=== PATIENT | female | born 1980 | race Caucasian/White ===

== ENCOUNTER 2024-06-13 19:07 | Emergency (ER) | payer BC, SELFPAY ==
[2024-06-13 19:10] VITALS: BP 162/120
--- NOTE | 2024-06-13 19:34 | ED.GENMED ---
History of Present Illness
<Rex Zhu MD - Last Filed: 06/15/24 12:42>
General
Chief Complaint: Crisis Evaluation
Source: patient
Exam Limitations: none
Time Seen by Provider: 06/13/24 19:24
Nursing documentation reviewed up to this point in time: agreed with
History of Present Illness
History of Present Illness:
Patient with history of anxiety and depression, currently taking Wellbutrin and Pristiq, presents to ED secondary to increased level of anxiety and depression recently, to the point where she 'does not wish to live anymore'. Denies suicidal plans.
Denies previous history of suicidal attempt. Denies recent illness. Patient reports decreased appetite and difficulty sleeping at night. Patient has lost approximate 3 pounds of weight over the past 1 week.
Review of Systems
<Rex Zhu MD - Last Filed: 06/15/24 12:42>
Review of Systems
Allergies reviewed?: Yes
All Other Systems: ROS reviewed and negative except as documented in HPI and ROS
Constitutional: Reports no symptoms
EENT: Reports no symptoms
Respiratory: Reports no symptoms
Cardiac: Reports no symptoms
ABD/GI: Reports no symptoms
Musculoskeletal: Reports no symptoms
Skin: Reports no symptoms
Neurological: Reports no symptoms
Psychiatric: Reports depression, anxiety and suicidal
Phy Exam
<Rex Zhu MD - Last Filed: 06/15/24 12:42>
Physical Exam
Physical Exam:
Physical Exam
General: no apparent distress, not acutely ill. afebrile
Head: nc/at. eomi
Neck: supple. normal range of motion.
Abdomen: normal bowel sounds. not tender.
Neuro: alert and oriented. no focal neurological deficits
Skin: no rash
Psychiatric: well kept. interactive and cooperative, but tearful
Extremities: no edema. no calf tenderness.
Course
<Rex Zhu MD - Last Filed: 06/15/24 12:42>
Orders/Labs/Results
Orders:
Orders
06/13/24 19:10
1:1 Observation - Suicide/ Violent Behavior As Directed
06/13/24 19:11
Crisis Consult Urgent
Reason for Consult: si
06/13/24 19:33
Test Result ONCE
06/13/24 19:55
Acetaminophen Urgent
Alcohol Urgent
Complete Blood Count/No Diff Urgent
Comprehensive Metabolic Panel Urgent
HCG, Serum Qualitative Screen Urgent
Comment: ADDON
Lead - Venous [S] Urgent
Salicylate Urgent
TSH Reflex To Free T4 Urgent
06/13/24 20:25
Alprazolam [Xanax] 0.5 mg PO NOW STA
Ibuprofen [Motrin] 400 mg PO NOW STA
06/13/24 21:11
Add On- LAB Urgent
Tests Added?: serum b-hcg, qualitative
06/13/24 23:49
Fentanyl, Urine Urgent
Urine Drug Abuse Screen Urgent
Date Specimen was Collected: 06/13/24
Time Specimen was Collected: 23:31
06/14/24 00:00
US Pelvis Only (non-obstetric) Urgent
Reason For Exam: acute heavy vag bleeding; cramping; IUD in place
Abnormal Lab Results
06/13/24 06/13/24
19:55 23:49
Calcium 10.3 H mg/dl
(8.4-10.2)
Albumin 5.4 H g/dl
(3.5-5.0)
Salicylates < 1.0 L mg/dl
(2.0-20.0)
Acetaminophen < 10 L ug/ml
(10-30)
U Benzodiazepines Scrn Positive H
(Negative)
U Marijuana (THC) Screen Positive H
(Negative)
06/13/24 19:55
06/13/24 19:55
Vital Signs
Initial and Last Documented VS:
Initial Vital Signs
Temp Pulse Resp BP Pulse Ox
98.5 F 133 18 162/120 98
06/13/24 19:10 06/13/24 19:10 06/13/24 19:10 06/13/24 19:10 06/13/24 19:10
Last Documented Vital Signs
Temp Pulse Resp BP Pulse Ox
98.5 F 88 16 104/65 98
06/13/24 19:10 06/14/24 00:41 06/14/24 00:41 06/14/24 00:41 06/14/24 00:41
<Barbie Lunsford, DO - Last Filed: 06/14/24 02:21>
Orders/Labs/Results
Orders:
Orders
06/13/24 19:10
1:1 Observation - Suicide/ Violent Behavior As Directed
06/13/24 19:11
Crisis Consult Urgent
Reason for Consult: si
06/13/24 19:33
Test Result ONCE
06/13/24 19:55
Acetaminophen Urgent
Alcohol Urgent
Complete Blood Count/No Diff Urgent
Comprehensive Metabolic Panel Urgent
HCG, Serum Qualitative Screen Urgent
Comment: ADDON
Lead - Venous [S] Urgent
Salicylate Urgent
TSH Reflex To Free T4 Urgent
06/13/24 20:25
Alprazolam [Xanax] 0.5 mg PO NOW STA
Ibuprofen [Motrin] 400 mg PO NOW STA
06/13/24 21:11
Add On- LAB Urgent
Tests Added?: serum b-hcg, qualitative
06/13/24 23:49
Fentanyl, Urine Urgent
Urine Drug Abuse Screen Urgent
Date Specimen was Collected: 06/13/24
Time Specimen was Collected: 23:31
06/14/24 00:00
US Pelvis Only (non-obstetric) Urgent
Reason For Exam: acute heavy vag bleeding; cramping; IUD in place
Abnormal Lab Results
06/13/24 06/13/24
19:55 23:49
Calcium 10.3 H mg/dl
(8.4-10.2)
Albumin 5.4 H g/dl
(3.5-5.0)
Salicylates < 1.0 L mg/dl
(2.0-20.0)
Acetaminophen < 10 L ug/ml
(10-30)
U Benzodiazepines Scrn Positive H
(Negative)
U Marijuana (THC) Screen Positive H
(Negative)
06/13/24 19:55
06/13/24 19:55
Vital Signs
Initial and Last Documented VS:
Initial Vital Signs
Temp Pulse Resp BP Pulse Ox
98.5 F 133 18 162/120 98
06/13/24 19:10 06/13/24 19:10 06/13/24 19:10 06/13/24 19:10 06/13/24 19:10
Last Documented Vital Signs
Temp Pulse Resp BP Pulse Ox
98.5 F 88 16 104/65 98
06/13/24 19:10 06/14/24 00:41 06/14/24 00:41 06/14/24 00:41 06/14/24 00:41
<Rex Zhu MD - Last Filed: 06/15/24 12:42>
MDM/Problems Addressed
MDM/Problems Addressed:
Pt medically cleared. Awaiting evaluation by [facility] survey workers supervisor.
<Barbie Lunsford DO - Last Filed: 06/14/24 02:21>
*Radiology
Radiology exam reviewed: radiology read reviewed (Pelvic ultrasound shows IUD in place. Normal endometrial stripe. 2.8 cm simple right ovarian cyst. 2.7 cm small hemorrhagic cyst on the left. Normal blood flow to both ovaries. No adnexal
masses nor pelvic free fluid.)
*Pulse Oximetry
Patient hypoxic: no
*Critical Care Note
Total Time (30-74mins, 75-104mins- exclusive of procedures): Not Applicable
<Barbie Lunsford, DO - Last Filed: 06/14/24 02:21>
Update Note
Update Note:
06/13/2024 2349 PM
Patient has been evaluated by [facility]. Recommending inpatient psychiatric care for which patient is agreeable to.
She complains of heavy vaginal bleeding that began tonight with some intermittent pelvic cramping.
She has Mirena IUD that was placed 8 months ago for control. Patient states since Mirena IUD in place she has not had a period over the past 8 months until tonight. She does admit to some intermittent pelvic cramping over the past week but
heavy bleeding began tonight.
She is concerned that the IUD has migrated or perhaps fallen out. Labs are all unremarkable. Normal CBC. hCG is negative.
A lead level is pending. Patient requested this as she was standing a chair coated with lead paint. She was wearing a respirator at the time but is concerned for possible lead poisoning.
Abdomen is soft, nondistended, minimal suprapubic tenderness with deep palpation only. No rebound or guarding. No palpable masses.
: There is small to moderate amount of dark maroon blood within vaginal vault. No active bleeding. IUD string is visible extruding from the cervical os.
I suspect breakthrough bleeding/menses but will check pelvic ultrasound assess for possible migration/early extrusion of IUD, assess for potential endometrial abnormalities, fibroid, ovarian cyst.
[facility] arranging for psychiatric hospital acceptance and transfer.
06/14/2024 0215 AM
Patient resting comfortably. Sleeps when undisturbed.
She has had no return of significant vaginal bleeding.
Ultrasound shows IUD within the uterus and appears in satisfactory position. Endometrial complex 7 mm in thickness which is within normal limits.
2.8 cm simple right ovarian cyst.
2.7 cm small hemorrhagic cyst of the left ovary. Positive flow to both ovaries. No adnexal masses, no pelvic free fluid.
I suspect vaginal bleeding is current menstrual period and I suspect irregular menses related to perimenopausal state as well as Mirena IUD.
She has been accepted to [facility].
[facility] arranging for transport.
ED Attending Note
<Rex Zhu MD - Last Filed: 06/15/24 12:42>
-
Portions of this chart may have been created with voice recognition software.� Occasional wrong word or��sound alike� substitutions may have occurred due to the inherent limitations of voice recognition software.
Discharge Plan
Departure
Patient Disposition: Psych Facility
Date of Disposition: 06/14/24
Time of Disposition: 02:12
Discharge Problem:
Major depressive disorder with current active episode, Irregular menstrual bleeding
Prescriptions:
No Action
bupropion HCl 150 MG tablet sustained-release 12 hr
150 mg PO DAILY
sertraline 100 MG tablet
100 mg PO DAILY Qty: 0 0RF
oxycodone-acetaminophen 5 MG/325 MG tablet
1 tab PO Q4HPRN PRN (Reason: moderate pain) Qty: 0 0RF
ibuprofen 600 MG tablet
600 mg PO Q6HPRN PRN (Reason: moderate pain/cramps) Qty: 0 0RF
Referrals:
Shivani Dueñas PA-C [Family Provider] -
Interventions
Interventions:
*Risk Screen - Suicide Last Done: 06/13/24 19:09
*General Assessment Last Done: 06/13/24 19:10
*Neglect/Abuse Screening Last Done: 06/13/24 19:10
ED- Fall Risk Assessment Last Done: 06/13/24 21:13
*ED COVID-19 Vaccine History Last Done: 06/13/24 19:10
*Nursing Disposition Last Done: 06/14/24 03:04
ED-Psychological Assessment Last Done: 06/13/24 21:13
Discharge Date and Time
Discharge Date/Time: 06/14/24 03:04
Print Language: [id number]
[2024-06-13 19:47] VITALS: BMI 24.1
[2024-06-13 20:04] LABS: Hematocrit 39.1 % (37.0-47.0); Hemoglobin 14.3 g/dL (12.0-16.0); Mean Corp Hgb Conc. 36.6 g/dL (33.0-37.0); Mean Corpuscular Volume 84.8 fL (81.0-99.0); Platelet Count 250 10^3/uL (130-400); Red Blood Cell Count 4.61 10^6/uL (4.20-5.40); Red Cell Dist. Width 11.7 % (11.5-14.5); White Blood Cell Count 7.4 10^3/uL (4.8-10.8)
[2024-06-13 20:22] LABS: ALT (SGPT) 28 U/L (0-35); AST (SGOT) 27 U/L (14-36); Acetaminophen < 10 ug/ml (10-30); Albumin 5.4 g/dl (3.5-5.0); Alkaline Phosphatase 68 U/L (38-126); Blood Urea Nitrogen 14 mg/dl (7-17); Calcium 10.3 mg/dl (8.4-10.2); Carbon Dioxide 24 mmol/L (22-30); Chloride 100 mmol/L (98-107); Estimated Creatinine Clearance 119 ml/min; Glucose 94 mg/dl (70-99); Potassium 3.9 mmol/L (3.5-5.1); Salicylate < 1.0 mg/dl (2.0-20.0); Sodium 138 mmol/L (135-145); Total Bilirubin 0.4 mg/dl (0.2-1.3); Total Protein 7.8 g/dl (6.3-8.2); eGFR > 60.00
[2024-06-13 20:32] LABS: Alcohol None Detected
[2024-06-13] MEDS: MOTRIN 400 MG PO (20:50)
[2024-06-13] MEDS: XANAX 0.5 MG PO (20:50)
[2024-06-13 20:51] LABS: TSH Reflex To Free T4 0.96 uIU/ml (0.47-4.68)
[2024-06-13 21:43] LABS: HCG, Serum Qualitative Screen Negative
[2024-06-14 00:41] VITALS: BP 104/65
[2024-06-14 00:52] LABS: Amphetamines Negative (Negative); Barbiturates Negative (Negative); Benzodiazepines Positive (Negative); Buprenorphine Negative (Negative); Cocaine Negative (Negative); Marijuana Positive (Negative); Methadone Negative (Negative); Methamphetamines Negative (Negative); Opiates Negative (Negative); Phencyclidine Negative (Negative)
[2024-06-14 00:53] LABS: Tricyclic Antidepressants Negative (Negative)
[2024-06-14 01:06] LABS: Fentanyl, Urine Negative (Negative)
[2024-06-16 04:30] LABS: Lead - Venous <2.0 ug/dL (<=4.9)
== END 2024-06-14 03:04 ==
LOC: EMR 19:07
PROVIDERS: Emergency Medicine; EMERGENCY PHYSICIAN Emergency Medicine; FAMILY PHYSICIAN Physician Assistant Medical
DX: F32.9 Major depressive disorder, single episode, unspecified (principal); F41.8 Other specified anxiety disorders; N92.6 Irregular menstruation, unspecified; Z97.5 Presence of (intrauterine) contraceptive device
CPT/HCPCS: 99284; 76856; 80053; 80143; 80179; 80306; 80307; 82077; 83655; 84443; 84703; 85027

== ENCOUNTER 2025-04-04 16:33 | Inpatient (IN) | payer BC, SELFPAY ==
[2025-04-04] VITALS (15 sets, daily range): BP systolic 83–121; BP diastolic 45–78
[2025-04-04 11:27] LABS: Hematocrit 37.5 % (37.0-47.0); Hemoglobin 13.2 g/dL (12.0-16.0); Mean Corp Hgb Conc. 35.2 g/dL (33.0-37.0); Mean Corpuscular Volume 86.6 fL (81.0-99.0); Nucleated Red Blood Cells % 0 %; Platelet Count 174 10^3/uL (130-400); Red Cell Dist. Width 11.8 % (11.5-14.5)
[2025-04-04 11:50] LABS: HCG, Serum Qualitative Screen Negative
[2025-04-04 11:59] LABS: ALT (SGPT) 55 U/L (0-35); AST (SGOT) 30 U/L (14-36); Albumin 5.1 g/dl (3.5-5.0); Alkaline Phosphatase 97 U/L (38-126); Blood Urea Nitrogen 6 mg/dl (7-17); Calcium 9.5 mg/dl (8.4-10.2); Carbon Dioxide 24 mmol/L (22-30); Chloride 99 mmol/L (98-107); Glucose 148 mg/dl (70-99); Lipase 38 U/L (23-300); Potassium 4.0 mmol/L (3.5-5.1); Sodium 132 mmol/L (135-145); Total Protein 7.6 g/dl (6.3-8.2); eGFR > 60.00
[2025-04-04] MEDS: NSS 1000 IV ×3 (12:08→21:10)
[2025-04-04] MEDS: TORADOL 15 MG IV (12:11)
--- NOTE | 2025-04-04 12:21 | ED.GENMED ---
History of Present Illness
<Mireya Romero PA-C - Last Filed: 04/04/25 17:24>
General
Chief Complaint: Abdominal Pain
Source: patient
Exam Limitations: none
Time Seen by Provider: 04/04/25 11:46
Nursing documentation reviewed up to this point in time: agreed with
History of Present Illness
History of Present Illness:
Patient is a 44-year-old female who presents to the emergency department for evaluation of abdominal pain for the past 2 days. Patient states that 2 days ago she began with vague abdominal discomfort which has remained constant since. She states
that earlier today pain seemed to migrate to the right lower quadrant. She denies any associated fever or vomiting. No diarrhea or constipation.
Patient does report that she has had very little appetite over the past few days.
Patient was seen by her primary care provider earlier today where she was referred to the emergency department for further evaluation.
Patient does report a history of tachycardia and has not taken her beta-zaki today. Patient reports penicillin allergy.
Review of Systems
<Mireya Romero PA-C - Last Filed: 04/04/25 17:24>
Review of Systems
Allergies reviewed?: Yes
All Other Systems: ROS reviewed and negative except as documented in HPI and ROS
Phy Exam
<Mireya Romero PA-C - Last Filed: 04/04/25 17:24>
Physical Exam
Physical Exam:
Vitals: Tachycardic, otherwise vital signs stable
General: Patient is well appearing, nontoxic appearing.
Skin: Warm and dry, no rashes or lesions
Head: Normocephalic, atraumatic
Eyes: Sclera nonicteric. EOMs intact. No nystagmus.
Throat: Protecting airway
Neck: Normal ROM, no cervical spine tenderness, no meningismus
Cardiac: Tachycardic, normal rhythm no murmurs.
Pulm: Normal respiratory effort, no wheezes, rales, rhonchi heard on exam
.
Abdomen: Abdomen soft. Moderate tenderness McBurney's point with voluntary guarding. No rebound tenderness
Extremities: No evidence of cyanosis or edema. Perfusing well
Neuro: AAOx3. Grossly intact.
Psychiatric: Normal affect.
Course
<Mireya Romero PA-C - Last Filed: 04/04/25 17:24>
Orders/Labs/Results
Orders:
Orders
04/04/25 11:11
Electrocardiogram (*1) Urgent
Reason for Study: Abdominal Pain
IV Insert/Care/Rem.- Treatment PRN
04/04/25 11:12
EKG- Treatment ONCE
Test Result ONCE
04/04/25 11:19
Complete Blood Count/With Diff Urgent
Comprehensive Metabolic Panel Urgent
HCG, Serum Qualitative Screen Urgent
Comment: Notify provider if positive test present
Lipase Urgent
04/04/25 11:55
CT Abd/pelvis W Iv Cont Urgent
Comment:
Reason For Exam: RLQ pain
0.9% Sodium Chloride 1000 ml [Nss] 1,000 ml IV BOLUS
Ketorolac [Toradol] 15 mg IV NOW STA
04/04/25 12:45
HYDROmorphone [Dilaudid] 0.5 mg IV NOW STA
04/04/25 12:51
Urinalysis Reflex To Culture Urgent
Date Specimen was Collected: 04/04/25
Time Specimen was Collected: 11:11
Urine Microscopic Reflex Cult Urgent
04/04/25 13:39
LevoFLOXacin 750 MG/150 ML [Levaquin] 750 mg in 150 ml IV NOW
MetroNIDAZOLE 500 MG/100 ML [Flagyl 500 mg] 100 ml IV NOW
04/04/25 15:01
HYDROmorphone [Dilaudid] 0.5 mg .ROUTE .STK-MED ONE
HYDROmorphone [Dilaudid] 0.5 mg IV NOW STA
04/04/25 15:34
0.9% Sodium Chloride 1000 ml [Nss] 1,000 ml IV BOLUS
04/04/25 15:39
Lactic Acid Q4H
Comment: CANCEL 2nd LACTIC ACID IF 1st LACTIC ACID IS LESS THAN 2
04/04/25 15:45
Electrocardiogram (*1) Urgent
Reason for Study: Bradycardia / Tachycardia
04/04/25 16:21
Admit/Transfer Patient As Directed
Co-Sign Provider:
Level of Care: Inpatient admission
Assign to:: Telemetry
Physician / Group: nyasia
Diagnosis: appendicitis
Reason for Telemetry: Arrhythmia
Date to Stop Telemetry: 04/07/25
Time to Stop Telemetry: 11:00
Reason for Hospitalization: appendicitis
Expected length of stay greater than two midnights?: Yes
ELOS- Estimated Length of Stay in days: 2
I certify the patient meets the requirements for IP care: Yes
PRN Pain Medication Management As Directed
May give lesser potent ordered pain med per pt: Yes
preference::
Protocol:: Medication orders for pain may be administered in a
manner that supports deferring to patient preference
when the pt is:
- Requesting an ordered lesser potent pain medication.
Least to most potent pain medications are defined
as: acetaminophen < NSAID < tramadol < opioids
(morphine, oxycodone, hydromorphone).
- Requesting a lesser dose of the same medication IF
ORDERED.
- Requesting a less intrusive route of administration
if both routes are prescribed by the provider (PO <
IV).
04/04/25 16:22
Code Status As Directed
Resuscitation Status: Full Code
04/04/25 16:25
PRN Pain Medication Management As Directed
May give lesser potent ordered pain med per pt: Yes
preference::
Protocol:: Medication orders for pain may be administered in a
manner that supports deferring to patient preference
when the pt is:
- Requesting an ordered lesser potent pain medication.
Least to most potent pain medications are defined
as: acetaminophen < NSAID < tramadol < opioids
(morphine, oxycodone, hydromorphone).
- Requesting a lesser dose of the same medication IF
ORDERED.
- Requesting a less intrusive route of administration
if both routes are prescribed by the provider (PO <
IV).
04/07/25 11:00
DC Protocol for Telemetry ONCE
Abnormal Lab Results
04/04/25 04/04/25
11:19 12:51
WBC 14.0 H 10^3/uL
(4.8-10.8)
Abs Immat Gran (auto) 0.1 H 10^3/uL
(0-0.05)
Absolute Neuts (auto) 12.3 H 10^3/uL
(1.4-6.5)
Absolute Lymphs (auto) 0.6 L 10^3/uL
(1.2-3.4)
Absolute Monos (auto) 1.1 H 10^3/uL
(0.1-0.6)
Neutrophils % 87.4 H %
(42.2-75.2)
Lymphocytes % 4.3 L %
(20.5-51.1)
Sodium 132 L mmol/L
(135-145)
BUN 6 L mg/dl
(7-17)
Glucose 148 H mg/dl
(70-99)
ALT 55 H U/L
(0-35)
Albumin 5.1 H g/dl
(3.5-5.0)
Urine Bacteria (Reflex) Few A
(Negative)
Urine Albumin (Reflex) 1+ A
(Neg - Trace)
04/04/25 11:19
04/04/25 11:19
Vital Signs
Initial and Last Documented VS:
Initial Vital Signs
Temp Pulse Resp BP Pulse Ox
98.7 F 140 22 121/78 97
04/04/25 11:09 04/04/25 11:09 04/04/25 11:09 04/04/25 11:09 04/04/25 11:09
Last Documented Vital Signs
Temp Pulse Resp BP Pulse Ox
99.7 F 134 15 100/63 99
04/04/25 15:29 04/04/25 17:00 04/04/25 17:00 04/04/25 17:00 04/04/25 15:31
<Rika Romero MD - Last Filed: 04/04/25 15:56>
Orders/Labs/Results
Orders:
Orders
04/04/25 11:11
Electrocardiogram (*1) Urgent
Reason for Study: Abdominal Pain
IV Insert/Care/Rem.- Treatment PRN
04/04/25 11:12
EKG- Treatment ONCE
Test Result ONCE
04/04/25 11:19
Complete Blood Count/With Diff Urgent
Comprehensive Metabolic Panel Urgent
HCG, Serum Qualitative Screen Urgent
Comment: Notify provider if positive test present
Lipase Urgent
04/04/25 11:55
CT Abd/pelvis W Iv Cont Urgent
Comment:
Reason For Exam: RLQ pain
0.9% Sodium Chloride 1000 ml [Nss] 1,000 ml IV BOLUS
Ketorolac [Toradol] 15 mg IV NOW STA
04/04/25 12:45
HYDROmorphone [Dilaudid] 0.5 mg IV NOW STA
04/04/25 12:51
Urinalysis Reflex To Culture Urgent
Date Specimen was Collected: 04/04/25
Time Specimen was Collected: 11:11
Urine Microscopic Reflex Cult Urgent
04/04/25 13:39
LevoFLOXacin 750 MG/150 ML [Levaquin] 750 mg in 150 ml IV NOW
MetroNIDAZOLE 500 MG/100 ML [Flagyl 500 mg] 100 ml IV NOW
04/04/25 15:01
HYDROmorphone [Dilaudid] 0.5 mg .ROUTE .STK-MED ONE
HYDROmorphone [Dilaudid] 0.5 mg IV NOW STA
04/04/25 15:34
0.9% Sodium Chloride 1000 ml [Nss] 1,000 ml IV BOLUS
04/04/25 15:39
Lactic Acid Q4H
Comment: CANCEL 2nd LACTIC ACID IF 1st LACTIC ACID IS LESS THAN 2
04/04/25 15:45
Electrocardiogram (*1) Urgent
Reason for Study: Bradycardia / Tachycardia
04/04/25 16:21
Admit/Transfer Patient As Directed
Co-Sign Provider:
Level of Care: Inpatient admission
Assign to:: Telemetry
Physician / Group: nyasia
Diagnosis: appendicitis
Reason for Telemetry: Arrhythmia
Date to Stop Telemetry: 04/07/25
Time to Stop Telemetry: 11:00
Reason for Hospitalization: appendicitis
Expected length of stay greater than two midnights?: Yes
ELOS- Estimated Length of Stay in days: 2
I certify the patient meets the requirements for IP care: Yes
PRN Pain Medication Management As Directed
May give lesser potent ordered pain med per pt: Yes
preference::
Protocol:: Medication orders for pain may be administered in a
manner that supports deferring to patient preference
when the pt is:
- Requesting an ordered lesser potent pain medication.
Least to most potent pain medications are defined
as: acetaminophen < NSAID < tramadol < opioids
(morphine, oxycodone, hydromorphone).
- Requesting a lesser dose of the same medication IF
ORDERED.
- Requesting a less intrusive route of administration
if both routes are prescribed by the provider (PO <
IV).
04/04/25 16:22
Code Status As Directed
Resuscitation Status: Full Code
04/04/25 16:25
PRN Pain Medication Management As Directed
May give lesser potent ordered pain med per pt: Yes
preference::
Protocol:: Medication orders for pain may be administered in a
manner that supports deferring to patient preference
when the pt is:
- Requesting an ordered lesser potent pain medication.
Least to most potent pain medications are defined
as: acetaminophen < NSAID < tramadol < opioids
(morphine, oxycodone, hydromorphone).
- Requesting a lesser dose of the same medication IF
ORDERED.
- Requesting a less intrusive route of administration
if both routes are prescribed by the provider (PO <
IV).
04/07/25 11:00
DC Protocol for Telemetry ONCE
Abnormal Lab Results
04/04/25 04/04/25
11:19 12:51
WBC 14.0 H 10^3/uL
(4.8-10.8)
Abs Immat Gran (auto) 0.1 H 10^3/uL
(0-0.05)
Absolute Neuts (auto) 12.3 H 10^3/uL
(1.4-6.5)
Absolute Lymphs (auto) 0.6 L 10^3/uL
(1.2-3.4)
Absolute Monos (auto) 1.1 H 10^3/uL
(0.1-0.6)
Neutrophils % 87.4 H %
(42.2-75.2)
Lymphocytes % 4.3 L %
(20.5-51.1)
Sodium 132 L mmol/L
(135-145)
BUN 6 L mg/dl
(7-17)
Glucose 148 H mg/dl
(70-99)
ALT 55 H U/L
(0-35)
Albumin 5.1 H g/dl
(3.5-5.0)
Urine Bacteria (Reflex) Few A
(Negative)
Urine Albumin (Reflex) 1+ A
(Neg - Trace)
04/04/25 11:19
04/04/25 11:19
Vital Signs
Initial and Last Documented VS:
Initial Vital Signs
Temp Pulse Resp BP Pulse Ox
98.7 F 140 22 121/78 97
04/04/25 11:09 04/04/25 11:09 04/04/25 11:09 04/04/25 11:09 04/04/25 11:09
Last Documented Vital Signs
Temp Pulse Resp BP Pulse Ox
99.7 F 134 15 100/63 99
04/04/25 15:29 04/04/25 17:00 04/04/25 17:00 04/04/25 17:00 04/04/25 15:31
<Mireya Romero PA-C - Last Filed: 04/04/25 17:24>
MDM/Problems Addressed
Differential Diagnosis Includes:
Not limited to: Acute appendicitis, intra-abdominal abscess, perforated appendicitis, diverticulitis, pyelonephritis, acute cholecystitis, etc.
MDM/Problems Addressed:
44-year-old female with history as documented presenting with 2 days of right lower abdominal pain associate with anorexia. No known fevers or vomiting at home. Patient tachycardic on arrival however normotensive. She is afebrile. On
exam�patient appears somewhat anxious however nontoxic. She is tachycardic with normal rhythm. Lungs clear bilaterally. Abdomen soft with focal tenderness in right lower quadrant McBurney's point. Basic labs were sent prior to my evaluation
significant for leukocytosis of 14. Chemistry reveals mild hyponatremia without any other clinically significant abnormalities. Urine shows no evidence of infection.
Based on patient's history and physical exam�high suspicion for acute appendicitis. Will proceed with CT scan abdomen/pelvis. Etiology of tachycardia unknown�possible anxiety vs dehydration vs sepsis. She does also report somewhat chronic history
of tachycardia as she is on a beta-zaki however did not take her dose this morning. Will continue to monitor closely
Update: CT scan shows evidence of acute appendicitis with small amount of periappendiceal fluid however no obvious abscess. Will start Levaquin/Flagyl given history of penicillin allergy. Will discuss with general surgery.
Update: Patient remains tachycardic in 130s�140s with somewhat soft BP, however MAP >65. Did reassess patient at bedside who remains well-appearing and nontoxic. She is asymptomatic and denies any palpitations, lightheadedness. While vital signs
could indicate sepsis�she appears very well. It is possible that her tachycardia is somewhat baseline and borderline hypotension secondary to narcotic pain medicine. Will check lactic acid and run second liter IV fluids wide open. Given concern
of elevated heart rate and possible sepsis�patient was admitted to hospitalist service. General surgery will consult.
Update: General surgery down to evaluate patient at bedside who brought patient to OR for appendectomy
Chronic conditions affecting care:
Tachycardia
Acute Exacerbation and/or Progression of Chronic Illness:
N/A
<Mireya Romero PA-C - Last Filed: 04/04/25 17:24>
*Radiology
Radiology exam reviewed: radiology read reviewed
*Pulse Oximetry
SaO2: 98
Oxygen Mode of Delivery: Room air
Patient hypoxic: no
*EKG
Interpreted by ED Provider?: Yes
EKG Intrepretation Date: 04/04/25
Interpretation: abnormal
Heart Rate: 122
Rate: tachycardiac
Rhythm: sinus
Interval: normal QT interval
*Sales Account Executive Interpretation
Rate: tachycardiac
Interpretation: abnormal
Heart Rate: 131
Rhythm: sinus
*Critical Care Note
Total Time (30-74mins, 75-104mins- exclusive of procedures): Not Applicable
<Mireya Romero PA-C - Last Filed: 04/04/25 17:24>
Patient Management
Discussion with other providers: Hospitalist and [employer] (Case discussed with general surgery)
ED Attending Note
<Mireya Romero PA-C - Last Filed: 04/04/25 17:24>
-
Portions of this chart may have been created with voice recognition software.� Occasional wrong word or��sound alike� substitutions may have occurred due to the inherent limitations of voice recognition software.
<Rika Romero MD - Last Filed: 04/04/25 15:56>
ED Attending Note
Patient seen and examined by attending physician: Yes
I performed the substantive portion of visit, reviewed & personally made and approve the management plan that is documented in note by myself or KAREN.: Yes
ED Attending Note:
44-year-old female with a few days of progressive abdominal pain noted to have right lower quadrant tenderness on exam here without rebound or guarding. She is overall very well-appearing, bright, lucid, requesting something to drink, conversant.
CT consistent with acute appendicitis. Antibiotics and IV fluids have been ordered and surgery contacted. No abscess noted. Patient has tachycardia noted here which in conversation with patient she states is baseline for her. She had a baseline
tachycardia up to 140s when she was on an antidepressant, and propranolol was added which she takes twice daily. However she is noncompliant with regularly taking the medication and her last dose was several days ago. She is not surprised with her
heart rate of 140s here in the emergency department. She denies dizziness, palpitations, chest pain, dyspnea. She states that she is thirsty and she thinks that she is 'dry'. Blood pressure noted to be somewhat soft although MAP greater than 65.
This may be a consequence of the pain medication that she got. IV fluids running wide open. Lactic pending. Technically she does have markers that would be consistent with sepsis however her clinical appearance and baseline tachycardia give me
pause. Plan is to monitor closely, continue IV fluids, assessments, admission.
Discharge Plan
Departure
Patient Disposition: Admit
Date of Disposition: 04/04/25
Time of Disposition: 14:56
Presentation/result/management discussed w/ accepting MD/DO: Hospitalist
Discharge Problem:
Acute appendicitis, Sepsis
Interventions
Interventions:
*Risk Screen - Suicide Last Done: 04/04/25 11:09
*General Assessment Last Done: 04/04/25 11:09
*Neglect/Abuse Screening Last Done: 04/04/25 11:09
*ED- Fall Risk Assessment Last Done: 04/04/25 12:12
*ED COVID-19 Vaccine History Last Done: 04/04/25 12:12
*Nursing Disposition Last Done: 04/04/25 17:12
PA-Hbhqxw-Qmofhcyocj Assessment Last Done: 04/04/25 12:16
Discharge Date and Time
Discharge Date/Time: 04/04/25 17:13
[2025-04-04] MEDS: DILAUDID 0.5 MG IV ×2 (12:50→15:03)
[2025-04-04 13:18] LABS: Urine Character Clear (Clear)
[2025-04-04] MEDS: FLAGYL 500 MG 100 IV ×2 (14:03→21:13)
[2025-04-04] MEDS: LEVAQUIN 150 IV (14:03)
[2025-04-04 14:12] LABS: Urine Squamous Cell >30 /LPF (Few)
[2025-04-04 14:13] LABS: Urine Red Blood Cell 0-2 /HPF (0-2)
[2025-04-04 14:14] LABS: Urine White Cell 0-2 /HPF (0-5)
--- NOTE | 2025-04-04 16:26 | HPS.HSE ---
Family Physician
-
Family Physician: Shivani Dueñas
Chief Complaint
-
abdominal pain
History of Present Illness
44-year-old female past medical history of tachycardia, gestational diabetes, depression, presenting for abdominal pain for the past 2 days. 2 days ago she started having vague abdominal discomfort that is constant. Earlier today pain migrated to
the right lower quadrant. Denies fever or vomiting. No diarrhea or constipation. No fevers or chills.
She has a history of tachycardia and her heart rate is normally slightly above 100.
Denies smoking, or drugs. Drinks alcohol occasionally.
Medical History
Past Medical History
Past Medical History: Reports Other (tachycardia, gestational diabetes, depression)
Past Surgical History: Reports None
Social History
Tobacco: Non-smoker
Alcohol: Occasional
Drug: None
Family History
Family History: Not pertinent
Allergies / Home Medications
Allergies reflects when Allergies were last updated in [employer].
Home Medications with original date entered in [employer]
Allergy/Medication List:
Allergies
Allergy/AdvReac Type Severity Reaction Status Date / Time
Penicillins Allergy Unknown Verified 04/20/16 05:44
Home Medications
buspirone 15 mg tablet 15 mg PO TID 04/04/25
clomipramine 75 mg capsule 150 mg PO HS 04/04/25
docusate sodium 100 mg capsule (Colace) 100 mg PO HS 04/04/25
estradiol 0.05 mg/24 hr semiweekly transdermal patch 1 patch transdermal SUWE 04/04/25
gabapentin 400 mg capsule 400 mg PO TID 04/04/25
lorazepam 1 mg tablet 1 mg PO DAILYPRN PRN anxiety 04/04/25
pantoprazole 20 mg tablet,delayed release (Protonix) 20 mg PO DAILYPRN PRN gerd 04/04/25
progesterone micronized 100 mg capsule 100 mg PO HS 04/04/25
propranolol 10 mg tablet 5 mg PO BID 04/04/25
sertraline 200 mg capsule 200 mg PO DAILY 04/04/25
Review of Systems
-
History Source: Patient
A 12 point ROS was completed and negative except as noted: Yes
Constitutional: Reports No Symptoms
EENT: Reports No Symptoms
Respiratory: Reports No Symptoms
Cardiac: Reports No Symptoms
Abdomen/GI: Reports See HPI
: Reports No Symptoms
Musculoskeletal: Reports No Symptoms
Skin: Reports No Symptoms
Neurological: Reports No Symptoms
Endocrine: Reports No Symptoms
Hematologic/Lymphatic: Reports No Symptoms
Psych: Reports No Symptoms
Physical Exam
Vital Signs
Vital Signs
Temp Pulse Resp BP Pulse Ox
99.7 F 135 18 93/61 99
04/04/25 15:29 04/04/25 16:15 04/04/25 16:15 04/04/25 16:00 04/04/25 15:31
Physical Exam
General: Well Developed, Well Nourished and No Apparent Distress
HEENT: NormoCephalic, Moist mucous membranes and Atraumatic
Respiratory: Clear
Cardiac: S1/S2 and Regular Rhythm; No Murmur or Rub
GI: Soft, Non Distended, Normal Bowel Sounds and Tender (RLQ ); No Organomegaly
Rectal: Deferred by Provider
Musculoskeletal: No Clubbing, No Cyanosis and No Edema
Skin: No Rash
Neuro: Nonfocal/grossly intact
Laboratory Results
-
04/04/25 11:19
04/04/25 11:19
Laboratory Results
Lactic Acid Cancelled 04/04/25 19:45
Total Bilirubin 0.7 mg/dl (0.2-1.3) 04/04/25 11:19
AST 30 U/L (14-36) 04/04/25 11:19
ALT 55 U/L (0-35) H 04/04/25 11:19
Alkaline Phosphatase 97 U/L (38-126) 04/04/25 11:19
Lipase 38 U/L (23-300) 04/04/25 11:19
Data Reviewed
-
Lab Data: Labs Reviewed by me
Old Records: Reviewed
Impression/Plan
-
IMPRESSION:
PLAN:
# Sepsis (leukocytosis, tachycardia) secondary to acute appendicitis
- CT abdomen pelvis shows large amount of periappendiceal inflammatory stranding, asymmetric large size of left ovary without identifiable ovarian cyst
-Urinalysis negative
-N.p.o.
- IV fluids
- Levaquin/Flagyl
- Zofran, ketorolac, Dilaudid as needed
- General Surgery consulted
History of tachycardia
- EKG shows sinus tachycardia heart rate 130, incomplete right bundle branch block, no prior for comparison
- Continue propranolol
- Telemetry monitoring
Anxiety/depression
- Continue buspirone, clomipramine, lorazepam, sertraline
Full code
DVT prophylaxis�heparin
N.p.o.
--- NOTE | 2025-04-04 17:24 | CON.GS ---
Consultation
-
Date/Time Consultation Performed: 04/04/2025 5 PM
Reason for Consultation: Appendicitis
Medical History
-
Chief Complaint: Right-sided abdominal pain
History of Present Illness:
Patient is a 44-year-old female who is in her usual baseline state of health until Tuesday, 48 hours ago when she began developing abdominal pain localizing to the right abdomen. She has had nausea and anorexia but no vomiting. Her last bowel
movement was yesterday. She feels abdominal bloating and distention. No similar episodes like this in the past.
Past Medical History
Past Medical History: Other (Tachycardia, gestational diabetes, depression)
Past Surgical History:
Social History
Tobacco: Non-Smoker
Alcohol: Occasional
Personal:
Living: With Family
Family History
Family History: Reviewed & Not Pertinent
Allergies / Home Medications
Allergy/AdvReac Type Severity Reaction Status Date / Time
Penicillins Allergy CHILD Verified 04/04/25 16:47
�Medication �Instructions �Recorded �Confirmed �Type
buspirone 15 mg tablet 15 mg PO TID 04/04/25 04/04/25 History
clomipramine 75 mg capsule 150 mg PO HS 04/04/25 04/04/25 History
docusate sodium 100 mg capsule 100 mg PO HS 04/04/25 04/04/25 History
(Colace)
estradiol 0.05 mg/24 hr semiweekly 1 patch transdermal SUWE 04/04/25 04/04/25 History
transdermal patch
gabapentin 400 mg capsule 400 mg PO TID 04/04/25 04/04/25 History
lorazepam 1 mg tablet 1 mg PO DAILYPRN PRN anxiety 04/04/25 04/04/25 History
pantoprazole 20 mg tablet,delayed 20 mg PO DAILYPRN PRN gerd 04/04/25 04/04/25 History
release (Protonix)
progesterone micronized 100 mg 100 mg PO HS 04/04/25 04/04/25 History
capsule
propranolol 10 mg tablet 5 mg PO BID 04/04/25 04/04/25 History
sertraline 200 mg capsule 200 mg PO DAILY 04/04/25 04/04/25 History
Review of Systems
-
History Source: Patient
All other systems: Negative unless noted
A 10 point review of systems was completed, and was negative except as per HPI.
Physical Exam
Vital Signs
Temp Pulse Resp BP Pulse Ox
99.7 F 134 15 100/63 99
04/04/25 15:29 04/04/25 17:00 04/04/25 17:00 04/04/25 17:00 04/04/25 15:31
04/03/25 04/04/25 04/05/25
06:59 06:59 06:59
Actual Weight 76.8 kg
Lab Results
04/04/25 11:19
04/04/25 11:19
WBC 14.0 10^3/uL (4.8-10.8) H 04/04/25 11:19
Hgb 13.2 g/dL (12.0-16.0) 04/04/25 11:19
Hct 37.5 % (37.0-47.0) 04/04/25 11:19
Plt Count 174 10^3/uL (130-400) 04/04/25 11:19
Abs Immat Gran (auto) 0.1 10^3/uL (0-0.05) H 04/04/25 11:19
Neutrophils % 87.4 % (42.2-75.2) H 04/04/25 11:19
Physical Exam
General: Well Developed, Well Nourished, No Apparent Distress and Other (But acutely ill-appearing, pleasant and participatory for history taking)
HEENT: Normocephalic, Anicteric and Moist Mucous Membranes
Respiratory: Non Labored Respirations
Cardiac: Regular Rhythm (Sinus tachycardia)
GI: Soft, Tender (Right sided rebound and guarding on palpation) and Distended
Neuro: AO x 3
Psych: Calm
Data Reviewed
-
CT Scan: Image Personally Visualized and interpreted, Report Reviewed by me and Discussed with Patient
Labs: Labs Reviewed by me and Discussed with Patient
Assessment / Plan
-
Assessment: 44-year-old female with acute appendicitis with localized peritonitis and resultant leukocytosis.
Reviewed with patient history, examination and CT imaging consistent with acute appendicitis. Discussed both operative and nonoperative management options and associated risks/benefits of approaches. Patient is in agreement to proceed with
appendectomy.
Laparoscopic appendectomy reviewed in detail with the patient. Discussed operative technique utilizing diagrams or drawings, alternative management options, benefits and potential risks such as but not limited to bleeding, infectious or wound
healing complications, iatrogenic injury to surrounding viscera and occasional need for ileocecectomy for more severe episodes of appendicitis with the appendiceal stump cannot be controlled locally. Discussed the typical postoperative recovery
pending operative findings.
Any of the patient's concerns or questions were fully addressed and informed consent was obtained.
Plan: OR for laparoscopic appendectomy.
Empiric antibiotic coverage with Levaquin and Flagyl administered in the emergency department
Nothing by mouth, IV fluid hydration and supportive care awaiting operative room availability.
SCDs for DVT prophylaxis
--- NOTE | 2025-04-04 17:28 | W.SUR.PREOP ---
Pre-Operative Surgical Note
-
I have examined this patient prior to the performance of the scheduled procedure.
The patient's condition is unchanged from the time of the current History and
Physical and the patient is able to undergo the scheduled procedure.
--- NOTE | 2025-04-04 18:51 | W.IMMPOSTOP ---
Addendum entered and electronically signed by Odilon Monterroso MD 04/04/25 19:01:
#[id number]
Original Note:
Surgical Immed Post Op Note
-
Primary Surgeon: Odilon Monterroso MD
Assisting Surgeon: Maliha Worthy PA-c
Pre-op Diagnosis: Acute appendicitis with localized peritonitis
Post-op Diagnosis: Gangrenous acute appendicitis with localized peritonitis
Procedure Performed: Laparoscopic appendectomy
Anesthesia Type: GETA +0.25% Marcaine
Specimen / Cultures: Appendix/none
Estimated Blood Loss: 8 mL
Complications: None immediate
Operative Findings: Retrocecal appendix parallel to the ascending colon and partially retroperitoneal. Gangrenous changes of the appendiceal wall with some sloughing/exudate but no purulence, no abscess, no disruption of appendix with appendectomy.
Free fluid cleared. Appendix taken flush with the cecum with Endo QUINTON purple 45 mm articulating stapler. Clarisa powder application to paracolic gutter for raw surface area from mobilization of appendix/mesoappendix adjacent to cecum/colon.
Patient's updated postoperatively via phone call
[2025-04-04] MEDS: INDERAL 5 MG PO (21:11)
[2025-04-04] MEDS: NEURONTIN 400 MG PO (21:11)
[2025-04-04] MEDS: BUSPAR 15 MG PO (21:12)
[2025-04-04] MEDS: ANAFRANIL 150 MG PO (21:16)
[2025-04-04] MEDS: COLACE 100 MG PO (21:18)
[2025-04-04] MEDS: TORADOL 10 MG IV (22:01)
--- NOTE | 2025-04-04 22:19 | TRANSFER ---
Report received from [facility] - received pt at 1955 s/p lap appy. x4 lap sites to abdomen SATURATION DIVER w glue. No s/s of infection noted. pt reported 4/10 pain to abdomen - medicated w PRN pain meds. VS WNL. IVF as ordered. Discussed plan of care with
pt. Call villa within reach, bed in lowest position.
[2025-04-05 03:35] VITALS: BP 107/66
[2025-04-05] MEDS: TORADOL 10 MG IV (05:05)
[2025-04-05] MEDS: FLAGYL 500 MG 100 IV ×2 (05:05→13:15)
[2025-04-05 07:14] LABS: Hematocrit 28.9 % (37.0-47.0); Hemoglobin 9.8 g/dL (12.0-16.0); Mean Corp Hgb Conc. 33.9 g/dL (33.0-37.0); Mean Corpuscular Volume 90.0 fL (81.0-99.0); Nucleated Red Blood Cells % 0 %; Platelet Count 125 10^3/uL (130-400); Red Cell Dist. Width 12.1 % (11.5-14.5)
--- NOTE | 2025-04-05 07:41 | W.PN.HOSP.TC ---
Today's Communication/Plan
-
Discharge home today vs tomorrow if hemoglobin stable and if tolerates regular diet
Assessment / Plan
Assessment / Plan
Impression:
44-year-old female past medical history of tachycardia, gestational diabetes, depression, presenting for abdominal pain for the past 2 days. 2 days ago she started having vague abdominal discomfort that is constant. Earlier today pain migrated to
the right lower quadrant. Denies fever or vomiting. No diarrhea or constipation. No fevers or chills.
CT scan shows CT abdomen pelvis shows large amount of periappendiceal inflammatory stranding, asymmetric large size of left ovary without identifiable ovarian cyst.
Surgery consulted and patient underwent laparoscopic appendectomy for gangrenous acute appendicitis with localized peritonitis.
Assessment/plan:
Sepsis (leukocytosis, tachycardia) secondary to acute appendicitis status post laparoscopic appendectomy.
- Patient presented with abdominal pain, CT scan shows CT abdomen pelvis shows large amount of periappendiceal inflammatory stranding, asymmetric large size of left ovary without identifiable ovarian cyst.
Surgery consulted and patient underwent laparoscopic appendectomy for gangrenous acute appendicitis with localized peritonitis.
- Tolerating clear liquid advanced to regular diet.
- IV fluids
- Continue Levaquin/Flagyl
- Pain and nausea control.
Appreciate surgery input
History of tachycardia
- EKG shows sinus tachycardia heart rate 130, incomplete right bundle branch block, no prior for comparison
- Continue propranolol
- Telemetry monitoring
Anxiety/depression
- Continue buspirone, clomipramine, lorazepam, sertraline
CODE STATUS: Full code
DVT prophylaxis: Lovenox
Diet: Regular
Disposition: Discharge home today vs tomorrow if hemoglobin stable and if tolerates regular diet
Total time spent on today's encounter was 65 minutes which included time spent in counseling the patient/family regarding diagnosis and treatment plan as listed above, goals of care, and symptom management. Case was discussed with nursing staff,
specialists, and care coordinators/case management. All labs and imaging personally reviewed by me. Remainder the time spent in detailed review of previous records, lab data, imaging, and other medical provider documentation.
Anticipated Discharge: Within 24 hours
Subjective/Interval History
-
Date of Service: April 05, 2025
Patient seen and examined at bedside, denies any chest pain or shortness of breath, no abdominal pain, no nausea, no vomiting, no diarrhea or constipation.
Objective Data
-
Labs:
Laboratory Results
04/05/25
06:45
WBC 9.9
Hgb 9.8 L D
Hct 28.9 L
Plt Count 125 L D
Sodium Pending
Potassium Pending
Chloride Pending
Carbon Dioxide Pending
BUN Pending
Creatinine Pending
Glucose Pending
Calcium Pending
Total Bilirubin Pending
AST Pending
ALT Pending
Alkaline Phosphatase Pending
Vital Signs:
Vital Signs
Temp Pulse Resp BP Pulse Ox
98.7 F 95 16 107/66 99
04/05/25 03:35 04/05/25 03:35 04/05/25 03:35 04/05/25 03:35 04/05/25 03:35
I&O
04/04/25 04/05/25 04/06/25
06:59 06:59 06:59
Intake Total 1979
Balance 1979
Physical Exam
-
General: Well Developed, Well Nourished, No Apparent Distress and Comfortable
HEENT: Normocephalic, Atraumatic, Moist Mucous Membranes, No Ptosis, PERRLA and Nose Appears Normal
Respiratory: Clear to Auscultation and Non Labored Respirations
Cardiac: Regular Rhythm and S1/S2
Breast: Deferred by me
GI: Soft, Normal Bowel Sounds and Other (Surgical site clean)
Genito-urinary: No Costovertebral Tender
Musculoskeletal: No Clubbing, No Cyanosis and No Edema
Skin: Warm
Neuro: Awake, Alert, Oriented, AO x 3 and No Motor Deficits
Psych: Calm
Data Reviewed
-
Diagnostic Radiology: Image personally visualized and interpreted and Report Reviewed by me
CT Scan: Image personally visualized and interpreted and Report Reviewed by me
Ultrasound: Image personally visualized and interpreted and Report Reviewed by me
MRI: Image personally visualized and interpreted and Report Reviewed by me
Medical Tests (Nuc Med, Echo etc): Image personally visualized and interpreted and Report Reviewed by me
Labs: Labs Reviewed by me
Old Records: Reviewed
[2025-04-05 07:42] LABS: ALT (SGPT) 45 U/L (0-35); AST (SGOT) 25 U/L (14-36); Albumin 3.2 g/dl (3.5-5.0); Alkaline Phosphatase 71 U/L (38-126); Blood Urea Nitrogen 6 mg/dl (7-17); Calcium 7.4 mg/dl (8.4-10.2); Carbon Dioxide 25 mmol/L (22-30); Chloride 108 mmol/L (98-107); Estimated Creatinine Clearance 117 ml/min; Glucose 110 mg/dl (70-99); Potassium 3.5 mmol/L (3.5-5.1); Sodium 137 mmol/L (135-145); Total Protein 5.3 g/dl (6.3-8.2); eGFR > 60.00
[2025-04-05 07:45] VITALS: BP 91/58
[2025-04-05] MEDS: ZOLOFT 200 MG PO (09:53)
[2025-04-05] MEDS: NSS 1000 IV (09:53)
[2025-04-05] MEDS: NEURONTIN 400 MG PO (09:53)
[2025-04-05] MEDS: BUSPAR 15 MG PO (09:53)
[2025-04-05] MEDS: TYLENOL 650 MG PO (09:59)
[2025-04-05] MEDS: INDERAL PO (10:08)
--- NOTE | 2025-04-05 10:10 | CM ---
Addendum entered by Kavitha Jimenez RN 04/05/25 10:12:
CM consult for suicide risk received. TT to attending regarding such.
Original Note:
Reviewed the chart notes and spoke with the patient at the bedside. The patient resides with her spouse in a two story home with two steps to enter. The patient reports no DME/VN/SNF in the past. The patient confirmed her pharmacy of choice is
[facility]. CM continues to be available to patient/family and is monitoring medical plan for needs at discharge.
Plan: Discharge to home when medically stable. No needs anticipated. Patient's spouse to provide transportation home.
--- NOTE | 2025-04-05 11:15 | W.PN.GS2 ---
Addendum entered and electronically signed by iSva Mendiola MD 04/05/25 12:56:
Patient seen and examined. Agree with assessment plan as documented below.
No major complaints. Pain well-controlled. Denies nausea or vomiting. No flatus or BM.
Gen: NAD
Abd: soft, minimal tenderness, minimal distension, non-peritoneal, incisions c/d/i - mild ecchymosis, no erythema, ecchymosis or drainage
Patient is a 44 yo F presenting with acute gangrenous appendicitis now POD#1 lap appy
AVSS
Leukocytosis resolved
Acute anemia present secondary to intraoperative losses and hemodilution
Recovering well overall. Monitoring for dietary tolerance, pain control, and stabilization of hemoglobin. Will reassess redness for discharge later this afternoon.
Plan:
-- Regular diet
-- C/W IV abx with plan to transition to PO agent upon d/c for a total of 7 days
-- Recheck h/h early this afternoon
-- Pain control: Tylenol, Toradol, Tramadol
-- Medical management as per primary
Discussed dispo planning with attending. May be ready later today vs tomorrow pending repeat labs and diet tolerance
Original Note:
Today's Communication / Plan
-
regular diet
abx x7 days
Assessment / Plan
-
44 yo female presenting with acute gangrenous appendicitis now pod #1 lap appi
Afebrile, VSS
Leukocytosis resolved
Acute anemia present secondary to intraoperative losses and hemodilution
Plan:
Advance to solid diet
Recheck h/h early this afternoon
Analgesics/antiemetics prn
Medical management as per primary
C/W IV abx with plan to transition to PO agent upon d/c for a total of 7 days
Discussed dispo planning with attending. May be ready later today vs tomorow pending repeat labs and diet tolerance
Subjective Data
-
Date of Service: April 05, 2025
Pt seen and examined at bedside with Dr. Mendiola. Denies n/v. Tolerating dietary advancements thus far. Passing some flatus but no bm's as of yet. Pain from prior to surgery has resolved, minimal incisional soreness now present. Denies
dizziness/lightheadedness
Objective Data
-
Intake and Output
04/04/25 04/05/25 04/06/25
06:59 06:59 06:59
Intake Total 1979
Balance 1979
Intake:
Oral fluids 480 / 480
IV fluids (Total) 1300 / 1300
Normosol 600 / 600
IV piggybacks 200 / 200
Other:
Number of approximated LARGE 1
amounts of urine
Vital Signs
Temp Pulse Resp BP Pulse Ox
98.0 F 89 16 91/58 94
04/05/25 07:45 04/05/25 07:45 04/05/25 07:45 04/05/25 07:45 04/05/25 07:45
Lab Results
04/05/25 06:45
Calcium 7.4 mg/dl (8.4-10.2) L D 04/05/25 06:45
Total Bilirubin 0.6 mg/dl (0.2-1.3) 04/05/25 06:45
AST 25 U/L (14-36) 04/05/25 06:45
ALT 45 U/L (0-35) H 04/05/25 06:45
Alkaline Phosphatase 71 U/L (38-126) 04/05/25 06:45
Total Protein 5.3 g/dl (6.3-8.2) L D 04/05/25 06:45
Albumin 3.2 g/dl (3.5-5.0) L D 04/05/25 06:45
Physical Exam
-
NAD
ABD soft, nd, mild incisional tenderness
Incisions well approximated, intact glue, no erythema
Patient has a becerra catheter: No
Patient has a central line: No
[2025-04-05 11:34] VITALS: BP 98/59
[2025-04-05] MEDS: LEVAQUIN 150 IV (13:16)
[2025-04-05 13:29] LABS: Hematocrit 29.4 % (37.0-47.0); Hemoglobin 10.1 g/dL (12.0-16.0)
--- NOTE | 2025-04-05 14:40 | W.DCSUMMARY ---
Discharge Summary
Discharge Data
Date of Admission: 04/04/25
Date of Discharge: 04/05/25
Total time spent discharging patient (in min): 40
-
Pending Results: No
Hospital Course
Hospital course
44-year-old female past medical history of tachycardia, gestational diabetes, depression, presenting for abdominal pain for the past 2 days. 2 days ago she started having vague abdominal discomfort that is constant. Earlier today pain migrated to
the right lower quadrant. Denies fever or vomiting. No diarrhea or constipation. No fevers or chills.
CT scan shows CT abdomen pelvis shows large amount of periappendiceal inflammatory stranding, asymmetric large size of left ovary without identifiable ovarian cyst.
Surgery consulted and patient underwent laparoscopic appendectomy for gangrenous acute appendicitis with localized peritonitis.
Patient patient tolerated regular diet, blood hemoglobin dropped but repeat hemoglobin stable.
Patient will be discharged home.
During hospitalization patient was treated from the following
Sepsis (leukocytosis, tachycardia) secondary to acute appendicitis status post laparoscopic appendectomy.
- Patient presented with abdominal pain, CT scan shows CT abdomen pelvis shows large amount of periappendiceal inflammatory stranding, asymmetric large size of left ovary without identifiable ovarian cyst.
Surgery consulted and patient underwent laparoscopic appendectomy for gangrenous acute appendicitis with localized peritonitis.
- Tolerating clear liquid advanced to regular diet which also tolerated.
- IV fluids
- Continue Levaquin/Flagyl--->, discharge on oral.
- Pain and nausea control.
Appreciate surgery input
History of tachycardia
- EKG shows sinus tachycardia heart rate 130, incomplete right bundle branch block, no prior for comparison
- Continue propranolol
- Telemetry monitoring
Anxiety/depression
- Continue buspirone, clomipramine, lorazepam, sertraline
CODE STATUS: Full code
DVT prophylaxis: Lovenox
Diet: Regular
Disposition: Discharge home.
Total time spent on today's encounter was 40 minutes which included time spent in counseling the patient/family regarding diagnosis and treatment plan as listed above, goals of care, and symptom management. Case was discussed with nursing staff,
specialists, and care coordinators/case management. All labs and imaging personally reviewed by me. Remainder the time spent in detailed review of previous records, lab data, imaging, and other medical provider documentation.
Anticipated Discharge: Today
Discharge Plan
-
Patient Disposition: Home (Routine Discharge)
Discharge Diagnosis/Procedures: Acute Gangrenous appendicitis with localized peritonitis.
Diet: As tolerated
Activity: As tolerated
Instructions: Appendectomy - Discharge instructions
Referrals:
Shivani Dueñas PA-C [Family Provider, Family Practice]
Odilon Monterroso MD [Active, Surgical] - in one to two weeks
Prescriptions:
New
acetaminophen 325 mg Tablet
650 mg PO Q4HPRN PRN (Reason: mild pain/TOMAS/temp> 100.4F) Qty: 30 0RF
metronidazole 500 mg tablet
500 mg PO Q8H 7 Days Qty: 21 0RF
ketorolac 10 mg tablet
10 mg PO Q6H PRN (Reason: Pain) 5 Days Qty: 20 0RF
levofloxacin 500 mg tablet
500 mg PO DAILY 7 Days Qty: 7 0RF
Continued
clomipramine 75 mg Capsule
150 mg PO HS
gabapentin 400 mg Capsule
400 mg PO TID
estradiol 0.05 mg/24 hr Patch Semiweekly
1 patch TRANSDERMAL SUWE
pantoprazole [Protonix] 20 mg Tablet,Delayed Release (Dr/Ec)
20 mg PO DAILYPRN PRN (Reason: gerd)
propranolol 10 mg Tablet
5 mg PO BID
docusate sodium [Colace] 100 mg Capsule
100 mg PO HS
lorazepam 1 mg Tablet
1 mg PO DAILYPRN PRN (Reason: anxiety)
progesterone micronized 100 mg Capsule
100 mg PO HS
buspirone 15 mg Tablet
15 mg PO TID
sertraline 200 mg Capsule
200 mg PO DAILY
Discharge Orders:
Discharge Patient (As Directed); Ordered 04/05/25
Ordered By: Bart Pratt
Discharge Date and Time
Print Language: [place]IZ[place]
[2025-04-05 15:05] VITALS: BP 103/59
== END 2025-04-05 16:30 | disposition home or self-care (01) | DRG 854 ==
LOC: 2 SOUTH 16:33
PROVIDERS: Emergency Medicine; Physician Assistant; Registered Nurse; ADMITTING PHYSICIAN Hospitalist; ATTENDING PHYSICIAN General Practice; CONSULT PHYSICIAN Surgery; EMERGENCY PHYSICIAN Emergency Medicine; FAMILY PHYSICIAN Physician Assistant Medical
PROC: 0DTJ4ZZ Resection of Appendix, Percutaneous Endoscopic Approach (ICD-10-PCS; 2025-04-04)
DX: A41.9 Sepsis, unspecified organism (principal); K35.31 Acute appendicitis with localized peritonitis and gangrene, without perforation; F41.9 Anxiety disorder, unspecified; F32.A Depression, unspecified; Z88.0 Allergy status to penicillin; I45.10 Unspecified right bundle-branch block; K21.9 Gastro-esophageal reflux disease without esophagitis; Z79.899 Other long term (current) drug therapy; Z91.199 Patient's noncompliance with other medical treatment and regimen due to unspecified reason
CPT/HCPCS: 74177; 80053; 81003; 81015; 83605; 83690; 84703; 85014; 85018; 85025; 88304; 93005; 96361; 96374; 96375; 96376; 99285; Q9967